=== PATIENT | male | born 1990 | race Caucasian/White ===

== ENCOUNTER → 2017-02-25 | Outpatient (CLI) | payer OTHER ==
--- NOTE | 2017-02-25 21:52 | MR ---
EXAMINATION TYPE: MR shoulder RT wo con DATE OF EXAM: 02/25/2017 COMPARISON: NONE HISTORY: Right shoulder pain per order. Pain for couple months after climbing injury per patient. TECHNIQUE: Multiplanar, multisequence imaging of the right shoulder is performed without contrast. FINDINGS: Rotator Cuff: Some mild increased signal distal supraspinatus tendon is present seen best paracoronal image 12 just before humeral head attachment below acromion. No suspicious partial or full-thickness rotator cuff tear is seen. Rotator cuff muscle bulk is preserved. Subscapularis tendon is intact. Acromioclavicular Joint: Acromioclavicular joint is felt within normal limits. Distal acromion morpho logy is unremarkable. Glenohumeral Joint: There is small to moderate-sized glenohumeral joint effusion. No significant spur ring is seen. Labrum: The labrum appears grossly intact given limitation of non-arthrogram study. Biceps Tendon: The long head of biceps is in normal location within bicipital groove. Bone marrow signal: Some heterogeneity is seen consistent with red marrow reconversion. No suspicious edema is noted. Other: No additional significant abnormality is appreciated. IMPRESSION: No rotator cuff or labral tear is seen. Mild tendinosis of supraspinatus tendon. Small to moderate-sized glenohumeral joint effusion is noted.
== END ==
LOC: RADMRIMAIN 15:49
PROVIDERS: ATTEND Orthopaedic Surgery
DX: M25.411 Effusion, right shoulder (principal); M75.81 Other shoulder lesions, right shoulder

== ENCOUNTER 2017-06-26 01:36 | Emergency (ER) | payer OTHER ==
[2017-06-26 01:42] VITALS: BP 127/75; PULSE 63; RESP 18; TEMP 96.8
[2017-06-26] MEDS ORDERED: FAMOTIDINE 20 MG TAB PO STA (02:02)
[2017-06-26] MEDS ORDERED: predniSONE 50 MG TAB PO STA (02:02)
--- NOTE | 2017-06-26 02:05 | ED ---
Skin/Abscess/FB HPI - General Chief complaint: Skin/Abscess/Foreign Body Stated complaint: Rash Time Seen by Provider: 06/26/17 01:48 Source: patient Mode of arrival: ambulatory Limitations: no limitations - History of Present Illness Initial comments: 27-year-old male patient presents to emergency department today for evaluation of a rash. Patient states that around noon yesterday, states that he had hives appear over his torso, bilateral arms and, bilateral legs. States that the areas were very itchy. States that he did take Benadryl which did improve his symptoms however when the Benadryl starts to wear off the hives come back in full force. He denies any exposure to new substances. Denies any use of new medications, introduction of new foods, new detergents, new soaps, or any new sleeping arrangements. States he has been at home over the last couple of days and hasn't been exposed to any new environments. Currently patient states that his symptoms are returning, he rates the itching at a 5 out of 10 on a scale. He denies any cough, shortness of breath, wheezing, throat swelling, or any other concerns. He denies any dizziness, weakness, abdominal pain, nausea, vomiting, or difficulties with urination or bowel movements. - Related Data Home Medications Medication Instructions Recorded Confirmed Citalopram Hydrobromide [CeleXA] 10 mg PO DAILY 06/26/17 06/26/17 Previous Rx's Medication Instructions Recorded Famotidine [Pepcid] 20 mg PO DAILY #7 tablet 06/26/17 predniSONE 50 mg PO DAILY #3 tab 06/26/17 Allergies Allergy/AdvReac Type Severity Reaction Status Date / Time No Known Allergies Allergy Verified 06/26/17 01:42 Review of Systems ROS Statement: Those systems with pertinent positive or pertinent negative responses have been documented in the HPI. ROS Other: All systems not noted in ROS Statement are negative. Past Medical History Past Medical History: No Reported History History of Any Multi-Drug Resistant Organisms: None Reported Past Surgical History: No Surgical Hx Reported Past Psychological History: Anxiety Smoking Status: Never smoker Past Alcohol Use History: Rare Past Drug Use History: None Reported General Exam Limitations: no limitations General appearance: alert, in no apparent distress, other (This is a well- developed, well-nourished adult male patient in no acute distress. Temperature 96.8F, pulse 63, respirations 18, blood pressure 127/75, pulse ox 97% on room air.) Eye exam: Present: normal appearance, PERRL, EOMI, other (No periorbital swelling, or lid swelling.). Absent: scleral icterus, conjunctival injection, periorbital swelling ENT exam: Present: normal exam, normal oropharynx, mucous membranes moist Respiratory exam: Present: normal lung sounds bilaterally. Absent: respiratory distress, wheezes, rales, rhonchi, stridor Cardiovascular Exam: Present: regular rate, normal rhythm, normal heart sounds. Absent: systolic murmur, diastolic murmur, rubs, gallop, clicks Neurological exam: Present: alert, oriented X3, CN II-XII intact Psychiatric exam: Present: normal affect, normal mood Skin exam: Present: warm, dry, intact, normal color, rash (Patient does exhibit erythematous confluent raised lesions consistent with urticaria over the left side of his torso, left arm, neck, and bilateral lower extremities.) Course Vital Signs 06/26/17 01:38 Temperature 96.8 F L Pulse Rate 63 Respiratory 18 Rate Blood Pressure 127/75 O2 Sat by Pulse 97 Oximetry Medical Decision Making - Medical Decision Making 27-year-old male patient presents for evaluation of rash. Physical examination did reveal rash that is consistent with urticaria. Patient has Guera taken Benadryl, we will give him oral prednisone and Pepcid here in the department. He'll be discharged with instructions to continue taking Benadryl or other over- the-counter antihistamine as directed. He will be given a prescription for the prednisone as well as the Pepcid. He is instructed to follow-up with his primary care physician for recheck in 1-2 days. He was educated regarding signs or symptoms of worsening reaction and instructed to return here immediately should any of these occur. He is instructed to return here immediately for any other new, worsening, or concerning symptoms. He verbalizes understanding and agrees with this plan. Disposition Clinical Impression: Urticaria Disposition: HOME SELF-CARE Condition: Good Instructions: Urticaria (ED) Additional Instructions: Continue take Benadryl every 6 hours as needed for the rash and itching. Take prescription of prednisone and Pepcid and full. Follow-up with her primary care physician for recheck should symptoms persist. Return here immediately for any new, worsening, or concerning symptoms. Prescriptions: Famotidine [Pepcid] 20 mg PO DAILY #7 tablet predniSONE 50 mg PO DAILY #3 tab Referrals: Micha Pagan MD [Primary Care Provider] - 1-2 days Time of Disposition: 02:05
== END 2017-06-26 02:16 | disposition home or self-care (01) ==
LOC: EC 01:36
DX: L50.9 Urticaria, unspecified (principal); Z79.899 Other long term (current) drug therapy
CPT/HCPCS: 99282 ×2; J7512

== ENCOUNTER 2018-01-16 19:52 | Emergency (ER) | payer OTHER ==
--- NOTE | 2018-01-16 20:13 | ED ---
General Adult HPI - General Chief complaint: Chest Pain Stated complaint: chest pain Time Seen by Provider: 01/16/18 20:01 Source: patient, RN notes reviewed, old records reviewed Mode of arrival: wheelchair Limitations: no limitations - History of Present Illness Initial comments: This is a 27-year-old male the ER with persistent chest pain, episodic chest pain throughout his life. Patient just is a child with no apparent diagnosis. Dizziness is left-sided pain pain to his back pain to his anterior abdomen. Substernal. No prior diagnosis. States the pain was worse tonight. Mild shortness of breath, does admit to having mild history of anxiety but denies drugs or alcohol. No fevers cough or congestion, no travel history - Related Data Home Medications Medication Instructions Recorded Confirmed Naproxen Sodium [Aleve] 660 mg PO BID PRN 01/16/18 01/16/18 Allergies Allergy/AdvReac Type Severity Reaction Status Date / Time No Known Allergies Allergy Verified 01/16/18 20:05 Review of Systems ROS Statement: Those systems with pertinent positive or pertinent negative responses have been documented in the HPI. ROS Other: All systems not noted in ROS Statement are negative. Past Medical History Past Medical History: No Reported History History of Any Multi-Drug Resistant Organisms: None Reported Past Surgical History: No Surgical Hx Reported Past Psychological History: Anxiety Smoking Status: Never smoker Past Alcohol Use History: Rare Past Drug Use History: None Reported General Exam Limitations: no limitations General appearance: alert, in no apparent distress Head exam: Present: atraumatic, normocephalic, normal inspection Eye exam: Present: normal appearance, PERRL, EOMI. Absent: scleral icterus, conjunctival injection, periorbital swelling ENT exam: Present: normal exam, mucous membranes moist Neck exam: Present: normal inspection. Absent: tenderness, meningismus, lymphadenopathy Respiratory exam: Present: normal lung sounds bilaterally. Absent: respiratory distress, wheezes, rales, rhonchi, stridor Cardiovascular Exam: Present: regular rate, normal rhythm, normal heart sounds. Absent: systolic murmur, diastolic murmur, rubs, gallop, clicks GI/Abdominal exam: Present: soft, normal bowel sounds. Absent: distended, tenderness, guarding, rebound, rigid Extremities exam: Present: normal inspection, full ROM, normal capillary refill. Absent: tenderness, pedal edema, joint swelling, calf tenderness Back exam: Present: normal inspection Neurological exam: Present: alert, oriented X3, CN II-XII intact Psychiatric exam: Present: normal affect, normal mood Skin exam: Present: warm, dry, intact, normal color. Absent: rash Course Vital Signs 01/16/18 01/16/18 01/16/18 19:53 20:57 22:55 Temperature 97.5 F L 98.3 F Pulse Rate 74 51 L 64 Respiratory 16 20 18 Rate Blood Pressure 155/97 139/71 121/66 O2 Sat by Pulse 96 99 98 Oximetry - Reevaluation(s) Reevaluation #1: The patient's pain is episodic but is in no acute distress EKG Findings - EKG Comments: EKG Findings:: EKG shows sinus rhythm rate of 70, SD 144, QRS 92, QTc 392 Medical Decision Making - Medical Decision Making 27 male the ER nonspecific chest pain, CT EKG troponin negative. Patient will follow up on an outpatient basis - Lab Data Result diagrams: 01/16/18 21:29 01/16/18 21:29 Lab Results 01/16/18 01/16/18 01/16/18 Range/Units 21:29 21:29 21:29 WBC 11.2 H (3.8-10.6) k/uL RBC 5.32 (4.30-5.90) m/uL Hgb 15.7 (13.0-17.5) gm/dL Hct 45.5 (39.0-53.0) % MCV 85.5 (80.0-100.0) fL MCH 29.5 (25.0-35.0) pg MCHC 34.5 (31.0-37.0) g/dL RDW 12.6 (11.5-15.5) % Plt Count 339 (150-450) k/uL Neutrophils % 72 % Lymphocytes % 19 % Monocytes % 5 % Eosinophils % 2 % Basophils % 0 % Neutrophils # 8.0 H (1.3-7.7) k/uL Lymphocytes # 2.1 (1.0-4.8) k/uL Monocytes # 0.6 (0-1.0) k/uL Eosinophils # 0.3 (0-0.7) k/uL Basophils # 0.1 (0-0.2) k/uL PT (9.0-12.0) sec INR (<1.2) APTT (22.0-30.0) sec D-Dimer (<0.60) mg/L FEU Sodium 142 (137-145) mmol/L Potassium 4.4 (3.5-5.1) mmol/L Chloride 105 (98-107) mmol/L Carbon Dioxide 23 (22-30) mmol/L Anion Gap 14 mmol/L BUN 13 (9-20) mg/dL Creatinine 0.81 (0.66-1.25) mg/dL Est GFR (CKD-EPI)AfAm >90 (>60 ml/min/1.73 sqM) Est GFR (CKD-EPI)NonAf >90 (>60 ml/min/1.73 sqM) Glucose 94 (74-99) mg/dL Calcium 10.1 (8.4-10.2) mg/dL Magnesium 1.7 (1.6-2.3) mg/dL Total Bilirubin 0.6 (0.2-1.3) mg/dL AST 29 (17-59) U/L ALT 47 (21-72) U/L Alkaline Phosphatase 94 (38-126) U/L Total Creatine Kinase 233 H (55-170) U/L CK-MB (CK-2) 1.3 (0.0-2.4) ng/mL CK-MB (CK-2) Rel Index 0.6 Troponin I <0.012 (0.000-0.034) ng/mL Total Protein 6.9 (6.3-8.2) g/dL Albumin 4.2 (3.5-5.0) g/dL Lipase 155 (23-300) U/L 01/16/18 Range/Units 21:29 WBC (3.8-10.6) k/uL RBC (4.30-5.90) m/uL Hgb (13.0-17.5) gm/dL Hct (39.0-53.0) % MCV (80.0-100.0) fL MCH (25.0-35.0) pg MCHC (31.0-37.0) g/dL RDW (11.5-15.5) % Plt Count (150-450) k/uL Neutrophils % % Lymphocytes % % Monocytes % % Eosinophils % % Basophils % % Neutrophils # (1.3-7.7) k/uL Lymphocytes # (1.0-4.8) k/uL Monocytes # (0-1.0) k/uL Eosinophils # (0-0.7) k/uL Basophils # (0-0.2) k/uL PT 9.9 (9.0-12.0) sec INR 1.0 (<1.2) APTT 23.7 (22.0-30.0) sec D-Dimer 0.21 (<0.60) mg/L FEU Sodium (137-145) mmol/L Potassium (3.5-5.1) mmol/L Chloride (98-107) mmol/L Carbon Dioxide (22-30) mmol/L Anion Gap mmol/L BUN (9-20) mg/dL Creatinine (0.66-1.25) mg/dL Est GFR (CKD-EPI)AfAm (>60 ml/min/1.73 sqM) Est GFR (CKD-EPI)NonAf (>60 ml/min/1.73 sqM) Glucose (74-99) mg/dL Calcium (8.4-10.2) mg/dL Magnesium (1.6-2.3) mg/dL Total Bilirubin (0.2-1.3) mg/dL AST (17-59) U/L ALT (21-72) U/L Alkaline Phosphatase (38-126) U/L Total Creatine Kinase (55-170) U/L CK-MB (CK-2) (0.0-2.4) ng/mL CK-MB (CK-2) Rel Index Troponin I (0.000-0.034) ng/mL Total Protein (6.3-8.2) g/dL Albumin (3.5-5.0) g/dL Lipase (23-300) U/L - Radiology Data Radiology results: report reviewed (CTA chest and pelvis negative for acute disease), image reviewed Disposition Clinical Impression: Chest pain Disposition: HOME SELF-CARE Condition: Good Instructions: Chest Pain (ED) Is patient prescribed a controlled substance at d/c from ED?: No Referrals: Micha Pagan MD [Primary Care Provider] - 1-2 days
--- NOTE | 2018-01-16 20:38 | XR ---
EXAMINATION TYPE: XR chest 2V DATE OF EXAM: 01/16/2018 COMPARISON: 01/15/2003 HISTORY: Chest pain TECHNIQUE: Frontal and lateral views of the chest are obtained. FINDINGS: Heart and mediastinum are normal. Lungs are clear. Diaphragm is normal. Bony thorax appear s normal. Pulmonary vascularity is normal. IMPRESSION: Normal chest
[2018-01-16] MEDS ORDERED: SODIUM CHLORIDE 0.9% 1,000 ML IV STA (21:19)
[2018-01-16] MEDS ORDERED: KETOROLAC 30 MG/ML 1 ML VIAL IVP STA (21:19)
[2018-01-16] MEDS ORDERED: RX INFO: IV CONTRAST WAS GIVEN 1 EACH MISC MISCELLANE PRN (21:19)
[2018-01-16] MEDS ORDERED: PANTOPRAZOLE 40 MG/10 ML VIAL IVP STA (21:20)
[2018-01-16 21:39] LABS: Basophils # (A) 0.1 k/uL (0-0.2); Basophils % (A) 0 %; Eosinophils # (A) 0.3 k/uL (0-0.7); Eosinophils % (A) 2 %; HCT 45.5 % (39.0-53.0); HGB 15.7 gm/dL (13.0-17.5); Lymphocytes # (A) 2.1 k/uL (1.0-4.8); Lymphocytes % (A) 19 %; MCH 29.5 pg (25.0-35.0); MCHC 34.5 g/dL (31.0-37.0); MCV 85.5 fL (80.0-100.0); Mean Platelet Volume 8.1; Monocytes # (A) 0.6 k/uL (0-1.0); Monocytes % (A) 5 %; Neutrophils % (A) 72 %; Platelet Count 339 k/uL (150-450); RBC 5.32 m/uL (4.30-5.90); RDW 12.6 % (11.5-15.5); WBC 11.2 k/uL (3.8-10.6)
[2018-01-16 21:52] LABS: ALT 47 U/L (21-72); AST 29 U/L (17-59); Albumin 4.2 g/dL (3.5-5.0); Alkaline Phosphatase 94 U/L (38-126); Anion Gap 14 mmol/L; Blood Urea Nitrogen 13 mg/dL (9-20); Calcium 10.1 mg/dL (8.4-10.2); Carbon Dioxide 23 mmol/L (22-30); Chloride 105 mmol/L (98-107); D-Dimer 0.21 mg/L FEU (<0.60); Glucose 94 mg/dL (74-99); Lipase 155 U/L (23-300); Magnesium 1.7 mg/dL (1.6-2.3); Partial Thromboplastin Time 23.7 sec (22.0-30.0); Potassium 4.4 mmol/L (3.5-5.1); Prothrombin Time 9.9 sec (9.0-12.0); Sodium 142 mmol/L (137-145); Total Bilirubin 0.6 mg/dL (0.2-1.3); Total Protein 6.9 g/dL (6.3-8.2)
[2018-01-16 22:01] LABS: Creatine Kinase 233 U/L (55-170)
[2018-01-16 22:15] LABS: Creatine Kinase MB 1.3 ng/mL (0.0-2.4); Troponin I <0.012 ng/mL (0.000-0.034)
--- NOTE | 2018-01-16 22:27 | CT ---
EXAMINATION TYPE: CT angio thoracic/abd aorta DATE OF EXAM: 01/16/2018 COMPARISON: NONE HISTORY: Chest pain and SOB. CT DLP: 1404.1 mGycm. Automated Exposure Control for Dose Reduction was Utilized. CONTRAST: CT scan of the thorax, abdomen and pelvis is performed without and with IV Contrast, patient injected with 100ml mL of Isovue 370. FINDINGS: There are 3-D post processed images. The lungs are clear of infiltrate. There is no evidence of a pulmonary mass. There is no pericardial effusion. Pulmonary arteries appear normal. Thoracic aorta has normal size. There is no sign of aorti c aneurysm or dissection. Abdominal aorta has normal size. There is no evidence of abdominal aortic a neurysm or dissection. There is patency of the celiac artery and the superior mesenteric artery. Ther e is bilateral patency of the renal arteries. There is patency of the common iliac arteries. There is no retroperitoneal adenopathy. There is no ascites. Kidneys have normal size and contour. Liver sple en pancreas gallbladder appear normal. Gallbladder is contracted. CONCLUSION: Normal CT angiogram of the thoracic and abdominal aorta.
[2018-01-16 22:56] VITALS: BP 121/66; PULSE 64; RESP 18; TEMP 98.3
== END 2018-01-16 22:55 | disposition home or self-care (01) ==
LOC: EC 19:52
DX: R07.2 Precordial pain (principal); R42 Dizziness and giddiness; R06.02 Shortness of breath; M54.9 Dorsalgia, unspecified
CPT/HCPCS: 36415; 93005; 85379; 80053; 82550; 82553; 83690; 83735; 84484; 85025; 85610; 85730; 71046; 75635; 71275; 99285; 96374; 96375; 96361; J1885; C9113; Q9967

== ENCOUNTER 2018-10-20 19:39 | Emergency (ER) | payer OTHER ==
[2018-10-20] MEDS ORDERED: IPRATROPIUM-ALBUTEROL 3 ML NEB INHALATION STA (20:10)
[2018-10-20] MEDS ORDERED: predniSONE 50 MG TAB PO STA (20:10)
[2018-10-20] MEDS ORDERED: ACETAMINOPHEN TAB 500 MG TAB PO STA (20:10)
--- NOTE | 2018-10-20 20:45 | XR ---
EXAMINATION TYPE: XR chest 2V DATE OF EXAM: 10/20/2018 COMPARISON: 01/16/2018 HISTORY: Short of breath TECHNIQUE: Frontal and lateral views of the chest are obtained. FINDINGS: Heart and mediastinum are normal. Lungs are clear. Diaphragm is normal. Bony thorax appear s normal. IMPRESSION: Normal chest. No change.
--- NOTE | 2018-10-20 20:45 | ED ---
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 Patient states he's been sick since with cough, nasal congestion, nasal drainage, sore throat, fever as high as 103F. Patient states that he did see his primary care physician on Saturday, was diagnosed with upper respiratory infection and left-sided otitis media. States he's been taking amoxicillin over the weekend and did start Tessalon Perles and Singulair today. Patient states that the cough has improved with use of the cough medication. States that his shortness of breath did increase today. States he is dyspneic with activity. States that he is coughing up yellow thick sputum. States that he did do a breathing treatment this morning but it didn't seem to help very much. States he did have asthma as a child has had any issues since. He denies any chest pain, states he does have some tightness. States he has had several episodes of posttussive vomiting. Denies any constipation or diarrhea. Patient denies any recent rash, abdominal pain, back pain, numbness, tingling, dizziness, weakness, hematuria, dysuria, urinary urgency, urinary frequency, headache, visual changes, or any other complaints. (Marizol Burton) - Related Data Home Medications Medication Instructions Recorded Confirmed Amoxicillin/Potassium Clav 1 tab PO BID 10/20/18 10/20/18 [Augmentin 875-125 Tablet] Benzonatate [Tessalon Perles] 200 mg PO TID 10/20/18 10/20/18 Montelukast Sodium [Singulair] 10 mg PO DAILY 10/20/18 10/20/18 Robitussin Severe 20 ml PO Q4H PRN 10/20/18 10/20/18 Previous Rx's Medication Instructions Recorded Ipratropium-Albuterol Nebulize 3 ml INHALATION Q4H #30 neb 10/20/18 [Duoneb 0.5 mg-3 mg/3 ml Soln] predniSONE 50 mg PO DAILY #5 tablet 10/20/18 Allergies Allergy/AdvReac Type Severity Reaction Status Date / Time No Known Allergies Allergy Verified 10/20/18 19:54 Review of Systems ROS Other: All systems not noted in ROS Statement are negative. <Marizol Burton - Last Filed: 10/21/18 02:18> ROS Other: All systems not noted in ROS Statement are negative. <Judi Yousif - Last Filed: 10/21/18 03:26> ROS Statement: Those systems with pertinent positive or pertinent negative responses have been documented in the HPI. Past Medical History Past Medical History: No Reported History History of Any Multi-Drug Resistant Organisms: None Reported Past Surgical History: No Surgical Hx Reported Past Psychological History: Anxiety Smoking Status: Never smoker Past Alcohol Use History: Rare Past Drug Use History: None Reported <Marizol Burton - Last Filed: 10/21/18 02:18> General Exam Limitations: no limitations General appearance: alert, in no apparent distress, other (This is a well- developed, well-nourished adult male patient in no acute distress. Vital signs upon presentation are temperature 98.8F, pulse 67, respirations 32, blood pressure 145/92, pulse ox 98% on room air.) Eye exam: Present: normal appearance, PERRL, EOMI. Absent: scleral icterus, conjunctival injection, periorbital swelling ENT exam: Present: normal exam, mucous membranes moist. Absent: normal oropharynx (Pharyngeal erythema), TM's normal bilaterally (Left-sided tympanic injection) Respiratory exam: Present: wheezes (Right-sided expiratory wheezing). Absent: normal lung sounds bilaterally, respiratory distress, rales, rhonchi, stridor Cardiovascular Exam: Present: regular rate, normal rhythm, normal heart sounds. Absent: systolic murmur, diastolic murmur, rubs, gallop, clicks GI/Abdominal exam: Present: soft, normal bowel sounds. Absent: distended, tenderness, guarding, rebound, rigid Neurological exam: Present: alert, oriented X3, CN II-XII intact Psychiatric exam: Present: normal affect, normal mood Skin exam: Present: warm, dry, intact, normal color. Absent: rash <Marizol Burton - Last Filed: 10/21/18 02:18> Vital Signs 10/20/18 10/20/18 10/20/18 19:41 20:02 20:21 Temperature 98.8 F Pulse Rate 67 85 Respiratory 32 H 24 Rate Blood Pressure 145/92 O2 Sat by Pulse 98 Oximetry 10/20/18 10/20/18 20:31 21:43 Temperature 98.9 F Pulse Rate 86 86 Respiratory 18 Rate Blood Pressure 133/88 O2 Sat by Pulse 96 Oximetry Medical Decision Making - Radiology Data Radiology results: report reviewed, image reviewed <Marizol Burton - Last Filed: 10/21/18 02:18> <Judi Yousif - Last Filed: 10/21/18 03:26> - Medical Decision Making 28-year-old male patient presents to the emergency department today for evaluation of upper respiratory symptoms including shortness of breath. Physical examination did reveal some wheezing to the right posterior lung arevalo. Chest x-ray showed no acute cardio pulmonary process. Patient was positive for influenza A. Symptoms have been present since so he is out of the treatment window for Tamiflu. Given the evidence of wheezing and complaint of shortness of breath and do feel that he has developed an acute bronchitis. We will treat with steroids and DuoNeb treatments. He does have a nebulizer machine at home. He is currently taking amoxicillin for left otitis media, he is instructed to continue this medication. We did discuss supportive care with increase fluids and [id number] nasal decongestants. He is instructed to follow-up with his primary care physician for recheck in 1-2 days. Return parameters were discussed in detail. He verbalizes understanding and agrees this plan. (Marizol Burton) I was available for consultation in the emergency department. The history and physical exam were done by the midlevel provider. I was consulted for this patient's care. I reviewed the case with the midlevel provider and based on their presentation of the patient, I agree with the assessment, medical decision making and plan of care as documented. (Judi Yousif) - Lab Data Lab Results 10/20/18 Range/Units 20:13 Influenza Type A RNA Detected H (Not Detectd) Influenza Type B (PCR) Not Detected (Not Detectd) - Radiology Data Two-view x-ray of the chest is obtained. Report was reviewed in its entirety. Impression by Dr. Jefferson shows normal chest with no change. (Marizol Burton) Disposition Is patient prescribed a controlled substance at d/c from ED?: No Time of Disposition: 21:33 <Marizol Burton - Last Filed: 10/21/18 02:18> <Judi Yousif - Last Filed: 10/21/18 03:26> Clinical Impression: Influenza A, Acute bronchitis Disposition: HOME SELF-CARE Condition: Good Instructions (If sedation given, give patient instructions): Influenza (ED), Acute Bronchitis (ED) Additional Instructions: Take medication as directed. Do breathing treatments every 4 hours. Complete steroid prescription in full. Complete antibiotics as directed by your physician. Return immediately for any new, worsening, or concerning symptoms. Prescriptions: Ipratropium-Albuterol Nebulize [Duoneb 0.5 mg-3 mg/3 ml Soln] 3 ml INHALATION Q4H #30 neb predniSONE 50 mg PO DAILY #5 tablet Referrals: Micha Pagan MD [Primary Care Provider] - 1-2 days
[2018-10-20 20:50] VITALS: PULSE 86
[2018-10-20 21:44] VITALS: BP 133/88; RESP 18; TEMP 98.9
== END 2018-10-20 21:43 | disposition home or self-care (01) ==
LOC: EC 19:39
DX: J10.1 Influenza due to other identified influenza virus with other respiratory manifestations (principal); J20.9 Acute bronchitis, unspecified; H66.92 Otitis media, unspecified, left ear; Z79.899 Other long term (current) drug therapy
CPT/HCPCS: 94640; 87502; 71046; 99285; J7512

== ENCOUNTER 2019-04-30 13:49 | Observation (INO) | payer OTHER ==
--- NOTE | 2019-04-30 14:22 | ED ---
Dizziness HPI - General Chief Complaint: Dizziness Stated Complaint: Dizzy Time Seen by Provider: 04/30/19 13:52 Source: patient, EMS, RN notes reviewed, old records reviewed Mode of arrival: EMS Limitations: no limitations - History of Present Illness MD Complaint: dizziness Timing: sudden onset, gradual onset History of Same: Yes History of Trauma: No Severity: mild Improves With: remaining still Worsens With: movement Associated Symptoms: ataxia, syncope, weakness - Related Data Home Medications Medication Instructions Recorded Confirmed Azithromycin [Zithromax Z-pack] See Taper PO DIRECTED 04/30/19 04/30/19 Citalopram Hydrobromide [CeleXA] 20 mg PO DAILY 04/30/19 04/30/19 Meclizine [Antivert] 25 mg PO BID 04/30/19 04/30/19 Ibpshyva-Nfmjakhqm-Cd Otic 3 drops BOTH EARS BID 04/30/19 04/30/19 [Cortisporin Otic Soln] Allergies Allergy/AdvReac Type Severity Reaction Status Date / Time No Known Allergies Allergy Verified 04/30/19 14:13 Review of Systems ROS Statement: Those systems with pertinent positive or pertinent negative responses have been documented in the HPI. ROS Other: All systems not noted in ROS Statement are negative. Past Medical History Past Medical History: No Reported History History of Any Multi-Drug Resistant Organisms: None Reported Past Surgical History: No Surgical Hx Reported Past Psychological History: Anxiety Smoking Status: Never smoker Past Alcohol Use History: Rare Past Drug Use History: None Reported General Exam - General Exam Comments Initial Comments: NIH of 0 Limitations: no limitations General appearance: alert, in no apparent distress Head exam: Present: atraumatic, normocephalic, normal inspection Eye exam: Present: normal appearance, PERRL, EOMI. Absent: scleral icterus, conjunctival injection, periorbital swelling ENT exam: Present: normal exam, mucous membranes moist Neck exam: Present: normal inspection. Absent: tenderness, meningismus, lymphadenopathy Respiratory exam: Present: normal lung sounds bilaterally. Absent: respiratory distress, wheezes, rales, rhonchi, stridor Cardiovascular Exam: Present: regular rate, normal rhythm, normal heart sounds. Absent: systolic murmur, diastolic murmur, rubs, gallop, clicks GI/Abdominal exam: Present: soft, normal bowel sounds. Absent: distended, tenderness, guarding, rebound, rigid Extremities exam: Present: normal inspection, full ROM, normal capillary refill. Absent: tenderness, pedal edema, joint swelling, calf tenderness Back exam: Present: normal inspection Neurological exam: Present: alert, oriented X3, CN II-XII intact Psychiatric exam: Present: normal affect, normal mood Skin exam: Present: warm, dry, intact, normal color. Absent: rash Course Vital Signs 04/30/19 13:49 Temperature 97.8 F Pulse Rate 55 L Respiratory 18 Rate Blood Pressure 128/84 O2 Sat by Pulse 98 Oximetry - Reevaluation(s) Reevaluation #1: 04/30/19 14:53 Medical and transfer paperwork are reviewed Reevaluation #2: 04/30/19 14:53 Spoke with [facility] patient for neurological evaluation Medical Decision Making - Medical Decision Making 28 male the ER for evaluation, patient is accepted in transfer for neurological evaluation. Patient's coming from [facility] for evaluation regarding dizziness. We'll admit for inpatient evaluation Disposition Clinical Impression: Dizziness, Vertigo, Near syncope Disposition: ADMITTED IP TO THIS HOSP Condition: Good Is patient prescribed a controlled substance at d/c from ED?: No Referrals: Breann Santana MD [Primary Care Provider] - 1-2 days
[2019-04-30 16:22] VITALS: PULSE 52
[2019-04-30 17:14] VITALS: BP 128/68; RESP 16; TEMP 97.8
[2019-04-30] MEDS ORDERED: NEOMYCIN-POLYMYXIN-HC (3.5-10,000-10 MG) OTIC DROPS 10 ML BTL BOTH EARS SCH (21:00)
[2019-04-30] MEDS ORDERED: MECLIZINE 25 MG TAB PO SCH (21:00)
--- NOTE | 2019-04-30 22:17 | HP ---
HISTORY AND PHYSICAL CHIEF COMPLAINT: Dizziness and as well as syncope. HISTORY OF PRESENT ILLNESS: This 28 -year-old gentleman with a past medical history of anxiety being followed by Dr. Santana in the outpatient complaining of dizziness for the last 2 weeks. The patient was taking some Antivert. The patient still feeling dizzy. Patient also had a feeling of passing out. The patient came to [facility] and was admitted for further evaluation and treatment, but however after admission, the patient left the hospital AGAINST MEDICAL ADVICE. The initial labs were pending at this time. There is no history of any fever, rigors. No headache loss or seizures at this time. PAST MEDICAL HISTORY: History of anxiety, history of dizziness. MEDICATIONS: Home medications are: 1. Antivert 25 mg p.o. b.i.d. 2. Celexa 20 mg p.o. daily. 3. Neomycin. 4. Zithromax. ALLERGIES: Are none. FAMILY HISTORY: Family history of cancer, melanoma in the family. SOCIAL HISTORY: No history of smoking, no history of alcohol intake. REVIEW OF SYSTEMS: ENT mentioned earlier. Cardiovascular no angina. Respiration no cough or hemoptysis. GASTROINTESTINAL: No nausea or vomiting. no dysuria. NERVOUS SYSTEM: As mentioned earlier. ALLERGIES/IMMUNOLOGY: No asthma or hayfever. MUSCULOSKELETAL as mentioned earlier. HEMATOLOGY/ONCOLOGY: No history of anemia. ENDOCRINE: No history of diabetes or hypothyroidism. CONSTITUTIONAL: As mentioned earlier. Dermatology: Negative. Rheumatology: Negative. Psychiatry: As mentioned earlier. PHYSICAL EXAMINATION: The patient is alert and oriented times three. Pulse is 52. Blood pressure 128/68, respirations 16, temperature 97.8, pulse ox 98% on room air. HEENT: Conjunctivae normal. Oral mucosa moist. NECK is no jugular venous distention. No carotid bruit. No lymph node enlargement. CARDIOVASCULAR SYSTEM: S1, S2. RESPIRATION: Breath sounds diminished in the bases. No rhonchi. No crackles. ABDOMEN: Soft, nontender. No mass palpable. LEGS: No edema. No swelling. CENTRAL NERVOUS SYSTEM: Higher functions as mentioned earlier. Moves all four extremities. No focal deficits. SKIN: No ulcer, no rash, no bleeding. LYMPHATICS: No lymph nodes palpable in the neck, axillae or groin. JOINTS: No active deforming arthropathy. LABS: Pending at this time. ASSESSMENT: 1. Dizziness and vertigo for evaluation possible BPPV, rule out transient ischemic attack. 2. History of anxiety. RECOMMENDATIONS AND DISCUSSION: In this is 28-year-old gentleman who presented with multiple complex medical issues, the patient was recommended admission to observation, but however the patient left the hospital AGAINST MEDICAL ADVICE. Symptomatic treatment has been provided. The prognosis remains extremely guarded. Neurology has been consulted. Copy of dictation being forwarded to Dr. Santana who is the primary physician. Please refer to the ER notes and the rest of the other documentation for further information. Prognosis remains extremely guarded. MMODL / IJN: [id number] /
[2019-05-01] MEDS ORDERED: CITALOPRAM HYDROBROMIDE 20 MG TAB PO SCH (09:00)
== END 2019-04-30 19:13 | disposition left against medical advice (07) ==
LOC: EC 13:49 → 3SCARD 14:51
PROVIDERS: ADMIT Internal Medicine; ATTEND Internal Medicine
DX: R42 Dizziness and giddiness (principal); R55 Syncope and collapse; R53.1 Weakness; F41.9 Anxiety disorder, unspecified; Z79.899 Other long term (current) drug therapy; Z53.21 Procedure and treatment not carried out due to patient leaving prior to being seen by health care provider; Z80.8 Family history of malignant neoplasm of other organs or systems; R29.700 NIHSS score 0
CPT/HCPCS: 99285; G0378

== ENCOUNTER → 2019-05-20 | Outpatient (CLI) | payer OTHER ==
--- NOTE | 2019-05-21 07:29 | MR ---
EXAMINATION TYPE: MR iac wo/w con DATE OF EXAM: 05/20/2019 COMPARISON: CT brain March 25, 2012. HISTORY: Dizziness and giddiness. TECHNIQUE: Multiplanar, multisequence images of the brain and brainstem is performed without and with IV contras t, utilizing 9.5 mL intravenous Gadavist . Acoustic nerve disorder protocol. FINDINGS: Diffusion weighted images demonstrate no evidence of a recent infarct or other diffusion ab normality. There is no extra-axial fluid collection or significant white matter signal abnormality. The ventricular system and cisternal spaces are normal in size and appearance. The brain volume is age appropriate. Midline structures demonstrate normal morphology. The craniocervical junction appears within normal limits. Normal vascular flow voids are present. The visualized sinuses are clear and the globes are i ntact. No suspicious fluid signal in mastoid air cells bilaterally. Vestibulocochlear complexes appear symme tric and within normal limits. No suspicious enhancing cerebellopontine angle mass is identified bila terally. IMPRESSION: Unremarkable study.
== END | disposition home or self-care (01) ==
LOC: RADMRIMAIN 21:38
PROVIDERS: ATTEND Otolaryngology Otolaryngic Allergy
DX: R42 Dizziness and giddiness (principal)
CPT/HCPCS: 70553; A9585

== ENCOUNTER 2019-06-17 16:48 | Emergency (ER) | payer OTHER ==
[2019-06-17 17:22] VITALS: BP 135/68; RESP 18; TEMP 98.5
[2019-06-17] MEDS ORDERED: ACETAMINOPHEN TAB 500 MG TAB PO STA (17:38)
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
[2019-06-17] MEDS ORDERED: TOPICAL SKIN ADHESIVE 1 EACH AMP TOPICAL ONE (19:17)
[2019-06-17] MEDS ORDERED: ACET/COD 300 MG/30 MG STARTER PACK 6 TAB BTL PO STA (19:18)
[2019-06-17 19:34] VITALS: PULSE 72
== END 2019-06-17 19:35 | disposition home or self-care (01) ==
LOC: EC 16:48
DX: S01.112A Laceration without foreign body of left eyelid and periocular area, initial encounter (principal); S40.212A Abrasion of left shoulder, initial encounter; S30.811A Abrasion of abdominal wall, initial encounter; S30.810A Abrasion of lower back and pelvis, initial encounter; F41.9 Anxiety disorder, unspecified; Z79.899 Other long term (current) drug therapy; Y04.2XXA Assault by strike against or bumped into by another person, initial encounter
CPT/HCPCS: 12011; 70450; 71111; 72125; 99284

== ENCOUNTER → 2021-01-07 | Outpatient (CLI) | payer OTHER ==
--- NOTE | 2021-01-07 09:22 | XR ---
EXAMINATION TYPE: XR knee limited RT DATE OF EXAM: 01/07/2021 CLINICAL HISTORY: Chronic pain with no new injuries TECHNIQUE: 2 views of the right knee are obtained. COMPARISON: Right knee x-ray April 25, 2001 FINDINGS: There is no acute fracture/dislocation evident in right knee. The tri-compartment joint s paces appear within normal limits. Growth plates have closed since prior study correlating with patie nt's current age. The overlying soft tissue appears unremarkable. IMPRESSION: Unremarkable study.
== END | disposition home or self-care (01) ==
LOC: RADXRMAIN 08:56
PROVIDERS: ATTEND Internal Medicine
DX: G89.29 Other chronic pain (principal)

== ENCOUNTER → 2021-04-10 | Outpatient (CLI) | payer OTHER ==
--- NOTE | 2021-04-11 04:58 | MR ---
EXAMINATION TYPE: MR brain wo/w con DATE OF EXAM: 04/10/2021 COMPARISON: None HISTORY: Dizziness. CONTRAST: Standard multiplanar, multisequence MRI departmental protocol utilizing 9 mL intravenous Gadavist benjamin olinium contrast. Diffusion images appear normal. There is no evidence of an acute infarct. The cisneros-white matter struc tures have normal signal pattern. There is no evidence of cerebral edema. Brainstem is intact. Ventri cles and sulci appear normal. There is no evidence of posterior fossa mass. There is no evidence of o rbital mass. Contrast images show normal enhancement of the venous sinuses. There is no pathologic enhancement. Th ere is no evidence of a sellar mass. Sella turcica appears normal. Corpus callosum appears normal. Pi tuitary stalk is in the midline. Cerebellum appears normal. IMPRESSION: Normal MR scan of the brain.
--- NOTE | 2021-04-11 05:02 | MR ---
EXAMINATION TYPE: MR angio head wo con DATE OF EXAM: 04/10/2021 COMPARISON: None HISTORY: Dizziness MR angiographic images were obtained of the intracerebral arterial circulation without contrast. There is arterial flow in the anterior middle and posterior cerebral arteries. There is arterial flow in the vertebrobasilar artery system. I see no evidence of intracranial aneurysm or neovascularity. There is no mass effect. There is no evidence of any stenosis. There is arterial flow in both posteri or communicating arteries. Posterior cerebral arteries appear to fill mostly through the posterior co mmunicating arteries. IMPRESSION: Negative MR angiogram of the brain.
== END | disposition home or self-care (01) ==
LOC: RADMRIMAIN 19:52
PROVIDERS: ATTEND Psychiatry & Neurology Neurology
DX: R42 Dizziness and giddiness (principal)
CPT/HCPCS: 70544; 70553; A9585

== ENCOUNTER → 2021-06-05 | Outpatient (CLI) | payer OTHER ==
--- NOTE | 2021-06-05 10:56 | XR ---
EXAM TYPE: LUMBAR SPINE X RAY SERIES COMPARISON: NONE HISTORY: Pain TECHNIQUE: 3 views are submitted. FINDINGS: Alignment is anatomic. The pedicles are intact. The transverse processes are intact. There is no s pondylolysis or spondylolisthesis. IMPRESSION: 1. No acute process.
== END | disposition home or self-care (01) ==
LOC: RADXRMAIN 09:41
PROVIDERS: ATTEND Internal Medicine
DX: M54.5 Low back pain (principal)
CPT/HCPCS: 72100